=== PATIENT | male | born 1935 ===

== ENCOUNTER 2017-12-08 11:31 | Observation (INO) ==
[2017-12-08] MEDS ORDERED: Lidocaine 1% 10 MG/ML - 20 ML VIAL SUBCUT ONE (11:49)
[2017-12-08 12:19] LABS: BASOPHILS # (AUTO) 0.03 10*3/UL; BASOPHILS % (AUTO) 0.4 % (0-1); EOSINOPHILS # (AUTO) 0.23 10*3/UL; EOSINOPHILS % (AUTO) 3.1 % (0-8); Hematocrit [HCT] 41.7 % (42.0-52.0); Hemoglobin [HGB] 13.9 g/dL (14.0-18.0); LYMPHOCYTES # (AUTO) 1.72 10*3/uL; MEAN CORPUSCULAR HEMOGLOBIN 30.8 PG (27-31); MEAN CORPUSCULAR HGB CONC 33.3 g/dL (33-37); MEAN CORPUSCULAR VOLUME 92.5 FL (80-90); MEAN PLATELET VOLUME 10.2 FL (7.4-12.2); MONOCYTES # (AUTO) 0.59 10*3/UL (0.3-0.8); NEUTROPHILS # (AUTO) 4.78 10*3/UL; NEUTROPHILS % (AUTO) 64.9 % (50-80); RED BLOOD COUNT 4.51 10^6/uL (4.70-6.10)
[2017-12-08 12:25] LABS: PLATELET MORPHOLOGY COMMENT NORMAL MORPHOLOGY (NORM); RBC MORPHOLOGY COMMENT NORMAL MORPHOLOGY (NORM); WBC MORPHOLOGY COMMENT NORMAL MORPHOLOGY (NORM)
[2017-12-08 12:29] LABS: BLOOD UREA NITROGEN 17 mg/dL (7-22); BUN/CREATININE RATIO 24.28 (6-20); SERUM ALBUMIN 3.7 g/dL (3.5-4.8)
[2017-12-08 14:15] LABS: SALICYLATE < 1.0 mg/dl (0-20)
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
[2017-12-08] MEDS ORDERED: DOCUSATE 100 MG CAPSULE PO PRN (19:51)
[2017-12-08] MEDS ORDERED: LIDOCAINE W/ SODIUM BICARB 0.5 ML SYR SUBD PRN (19:51)
[2017-12-08] MEDS ORDERED: CALCIUM CARBONATE 500 MG (TUMS) CHEWABLE TABLET PO PRN (19:51)
[2017-12-08] MEDS ORDERED: ONDANSETRON 4 MG/2 ML VIAL IVP PRN (19:51)
[2017-12-08] MEDS ORDERED: HALOPERIDOL LACTATE 5 MG/1 ML AMPULE IM PRN (19:53)
[2017-12-08] MEDS ORDERED: LIDOCAINE HCL 5 ML JEL TOPICAL PRN (21:59)
[2017-12-08] MEDS ORDERED: NICOTINE 21 MG /DAY PATCH TRANSDERM ONE (22:07)
[2017-12-08] MEDS ORDERED: RIVASTIGMINE 4.6 MG/24 HR PATCH TRANSDERM ONE (22:07)
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
[2017-12-09] MEDS: ACETAMINOPHEN 325 MG TABLET PO PRN (00:59)
[2017-12-09] MEDS: RIVASTIGMINE 4.6 MG/24 HR PATCH TRANSDERM SCH (08:06)
[2017-12-09] MEDS: NICOTINE 21 MG /DAY PATCH TRANSDERM SCH (08:06)
[2017-12-09] MEDS: Patch Removal PATCH TRANSDERM SCH ×2 (08:12)
--- NOTE | 2017-12-09 17:08 | PDOC(PROG) ---
Date of Service: 12/09/17 Time of Service: 17:04 Interval History: Left toe still hurts. He is confused and altered in terms of knowing where he is at, but he is responsive to his name. He has shown no evidence of combative or aggressive behavior here. Objective : Data - Labs CBC and BMP: 12/08/17 12:16 12/08/17 12:16 Objective : Exam - General General Appearance: No Acute Distress, Cooperative Additional General Exam Details: Vital Signs - Last Taken Temperature 98.4 F 12/09/17 15:57 Pulse Rate 60 12/09/17 15:57 Respiratory Rate 17 12/09/17 15:57 Blood Pressure 109/52 12/09/17 15:57 Pulse Ox 97 12/09/17 15:57 - Eye Eye Exam: No Scleral Icterus - ENT ENT Exam: Mucous Membranes Moist - Respiratory Respiratory Exam: Clear to Auscultation - Bilaterally, Breathing Non Labored - Cardiovascular Cardiovascular Exam: RRR, No Murmur, No Clicks, No Gallops, No Rubs, No JVD - GI/Abdominal GI/Abdominal Exam: Normal Bowel Sounds, Non Tender, Non Distended, Soft - Extremities Extremities Exam: No Edema Present, No Cyanosis Present, Clubbing Present - Neurological Neurological Exam: Alert, No Facial Droop, Speech Intact / Clear, Moves All Extremities Equally, Altered Additional Neurological Exam Details: Oriented to person only. - Psychiatric Psychiatric Exam: Normal Affect, Normal Mood Assessment and Plan - Patient Problems (1) Psychosis Current Visit: Yes Status: Resolved Code(s): F29 - Unspecified psychosis not due to a substance or known physiological condition Qualifiers: Psychosis type: brief psychotic disorder Qualified Code(s): F23 - Brief psychotic disorder (2) Dementia Current Visit: Yes Status: Chronic Code(s): F03.90 - Unspecified dementia without behavioral disturbance Qualifiers: Dementia type: unspecified type Dementia behavioral disturbance: with behavioral disturbance Qualified Code(s): F03.91 - Unspecified dementia with behavioral disturbance (3) Tobacco abuse Current Visit: Yes Status: Acute Code(s): Z72.0 - Tobacco use (4) Status post surgical removal of nail matrix of toe of left foot Current Visit: Yes Status: Acute Code(s): Z98.890 - Other specified postprocedural states (5) Hypertension Current Visit: Yes Status: Chronic Code(s): I10 - Essential (primary) hypertension Qualifiers: Hypertension type: essential hypertension Qualified Code(s): I10 - Essential (primary) hypertension (6) COPD (chronic obstructive pulmonary disease) Current Visit: Yes Status: Chronic Code(s): J44.9 - Chronic obstructive pulmonary disease, unspecified Qualifiers: COPD type: unspecified COPD Qualified Code(s): J44.9 - Chronic obstructive pulmonary disease, unspecified - Assessment / Plan Additional Assessment/Plan Details: Overall, I think discontinuing meds and place the patient on Exelon and nicotine patches seems to be working best far in terms of behavioral disturbances in the setting of dementia. Continue dressings for left toe daily until healed up. There is no sign of infection on my examination today in the nail bed looks clean and it is otherwise without any signs of bleeding. I tried to call the patient's stepson discuss further, Judd Delgado, [phone]. I was able to read through the [facility] as well, and the patient is on a 381 hold for harm to self and harm to others. We are waiting for a bed at [facility], but one is not available just yet. The patient will remain here as there is absolutely no safe disposition and he will not be readmitted at [facility] due to his behaviors there, but I really do think that if we can keep him off of several medications and place him in a place where he could continue to smoke, that may be the best accommodations in the future. It may be as per psychiatry at [facility], but he is medically cleared from my standpoint to go with continued dressing changes over the next week or so, for the left toe.
[2017-12-10] MEDS: RIVASTIGMINE 4.6 MG/24 HR PATCH TRANSDERM SCH (09:00)
[2017-12-10] MEDS: NICOTINE 21 MG /DAY PATCH TRANSDERM SCH (10:12)
[2017-12-10] MEDS: Patch Removal PATCH TRANSDERM SCH ×2 (10:16)
--- NOTE | 2017-12-10 12:22 | PDOC(PROG) ---
Date of Service: 12/10/17 Time of Service: 12:19 Interval History: No chest pain, shortness breath, and no change in orientation. He has not had any symptoms of behavioral disturbances here. No aggressive behaviors. He states that his left toe still hurts. Objective : Data - Labs CBC and BMP: 12/08/17 12:16 12/08/17 12:16 Objective : Exam - General General Appearance: No Acute Distress, Cooperative Additional General Exam Details: Vital Signs - Last Taken Temperature 97.5 F 12/10/17 08:10 Pulse Rate 75 12/10/17 08:10 Respiratory Rate 16 12/10/17 08:10 Blood Pressure 138/76 12/10/17 08:10 Pulse Ox 96 12/10/17 08:10 - Eye Eye Exam: No Scleral Icterus - ENT ENT Exam: Mucous Membranes Moist - Respiratory Respiratory Exam: Clear to Auscultation - Bilaterally, Breathing Non Labored - Cardiovascular Cardiovascular Exam: RRR, No Murmur, No Clicks, No Gallops, No Rubs, No JVD - GI/Abdominal GI/Abdominal Exam: Normal Bowel Sounds, Non Tender, Non Distended, Soft - Extremities Extremities Exam: No Edema Present, No Cyanosis Present, Clubbing Present - Neurological Neurological Exam: Alert, No Facial Droop, Speech Intact / Clear, Moves All Extremities Equally Additional Neurological Exam Details: Oriented to person, not to place, time, or situation. Assessment and Plan - Patient Problems (1) Dementia Current Visit: Yes Status: Chronic Code(s): F03.90 - Unspecified dementia without behavioral disturbance Qualifiers: Dementia type: unspecified type Dementia behavioral disturbance: without behavioral disturbance Qualified Code(s): F03.90 - Unspecified dementia without behavioral disturbance (2) Tobacco abuse Current Visit: Yes Status: Acute Code(s): Z72.0 - Tobacco use (3) Status post surgical removal of nail matrix of toe of left foot Current Visit: Yes Status: Acute Code(s): Z98.890 - Other specified postprocedural states (4) Hypertension Current Visit: Yes Status: Chronic Code(s): I10 - Essential (primary) hypertension Qualifiers: Hypertension type: essential hypertension Qualified Code(s): I10 - Essential (primary) hypertension (5) COPD (chronic obstructive pulmonary disease) Current Visit: Yes Status: Chronic Code(s): J44.9 - Chronic obstructive pulmonary disease, unspecified Qualifiers: COPD type: unspecified COPD Qualified Code(s): J44.9 - Chronic obstructive pulmonary disease, unspecified (6) Psychosis Current Visit: Yes Status: Resolved Code(s): F29 - Unspecified psychosis not due to a substance or known physiological condition Qualifiers: Psychosis type: brief psychotic disorder Qualified Code(s): F23 - Brief psychotic disorder - Assessment / Plan Additional Assessment/Plan Details: Continue Exelon patch and nicotine patch. Local wound care for toenail removal. There is no evidence of infection on my view of the toe today. Some yellowish discharge which is normal. No blood. Thus far, the patient has been easily redirectable and has not exhibited any behavioral disturbances here. He is on a hold, but we do not have a bed yet at one may be able to institute. We will have to see what happens as the hold could disappear if he does not have a hearing within 72 hours.
[2017-12-11] MEDS: ACETAMINOPHEN 325 MG TABLET PO PRN (01:54)
[2017-12-11] MEDS: RIVASTIGMINE 4.6 MG/24 HR PATCH TRANSDERM SCH (12:28)
[2017-12-11] MEDS: NICOTINE 21 MG /DAY PATCH TRANSDERM SCH (12:28)
[2017-12-11] MEDS: Patch Removal PATCH TRANSDERM SCH ×2 (12:30)
--- NOTE | 2017-12-11 15:11 | PDOC(PROG) ---
Date of Service: 12/11/17 Time of Service: 15:07 Interval History: Patient seen and evaluated earlier today. No complaints. At least no complaints of chest pain, shortness breath, nausea or vomiting. States left toe still throbs. Objective : Data - Labs CBC and BMP: 12/08/17 12:16 12/08/17 12:16 Objective : Exam - General General Appearance: No Acute Distress, Cooperative Additional General Exam Details: Vital Signs - Last Taken Temperature 97.9 F 12/11/17 13:00 Pulse Rate 79 12/11/17 13:00 Respiratory Rate 18 12/11/17 13:00 Blood Pressure 109/59 12/11/17 13:00 Pulse Ox 94 12/11/17 13:00 - Eye Eye Exam: No Scleral Icterus - ENT ENT Exam: Mucous Membranes Moist - Respiratory Respiratory Exam: Clear to Auscultation - Bilaterally, Breathing Non Labored - Cardiovascular Cardiovascular Exam: RRR, No Murmur, No Clicks, No Gallops, No Rubs, No JVD - Extremities Extremities Exam: No Clubbing Present, No Edema Present, No Cyanosis Present - Neurological Neurological Exam: Alert, Normal Gait, No Facial Droop, Speech Intact / Clear, Moves All Extremities Equally Additional Neurological Exam Details: Oriented to person only Assessment and Plan - Patient Problems (1) Dementia Current Visit: Yes Status: Chronic Code(s): F03.90 - Unspecified dementia without behavioral disturbance Qualifiers: Dementia type: unspecified type Dementia behavioral disturbance: without behavioral disturbance Qualified Code(s): F03.90 - Unspecified dementia without behavioral disturbance (2) Tobacco abuse Current Visit: Yes Status: Acute Code(s): Z72.0 - Tobacco use (3) Status post surgical removal of nail matrix of toe of left foot Current Visit: Yes Status: Acute Code(s): Z98.890 - Other specified postprocedural states (4) Hypertension Current Visit: Yes Status: Chronic Code(s): I10 - Essential (primary) hypertension Qualifiers: Hypertension type: essential hypertension Qualified Code(s): I10 - Essential (primary) hypertension (5) COPD (chronic obstructive pulmonary disease) Current Visit: Yes Status: Chronic Code(s): J44.9 - Chronic obstructive pulmonary disease, unspecified Qualifiers: COPD type: unspecified COPD Qualified Code(s): J44.9 - Chronic obstructive pulmonary disease, unspecified (6) Psychosis Current Visit: Yes Status: Resolved Code(s): F29 - Unspecified psychosis not due to a substance or known physiological condition Qualifiers: Psychosis type: brief psychotic disorder Qualified Code(s): F23 - Brief psychotic disorder - Assessment / Plan Additional Assessment/Plan Details: Continue Exelon patch and nicotine patch. Thus far, no behavioral issues and no aggressive behaviors toward staff or others. Continue local wound care for toenail removal. Placement for this patient may be an issue. However he is still on a 381 hold. It is set to Wednesday. I don't know what will happen in terms of any hearing or not. Ultimately, the patient needs long-term placement in the setting that has some sort of specialization or ability to care for dementia patients. Case management is following and assisting as possible. I tried to call the step son and there was never any answer.
[2017-12-12] MEDS: NICOTINE 21 MG /DAY PATCH TRANSDERM SCH ×2 (09:11→09:15)
[2017-12-12] MEDS: Patch Removal PATCH TRANSDERM SCH ×3 (09:11→09:15)
[2017-12-12] MEDS: RIVASTIGMINE 4.6 MG/24 HR PATCH TRANSDERM SCH (09:11)
--- NOTE | 2017-12-12 12:38 | PDOC(PROG) ---
Date of Service: 12/12/17 Time of Service: 12:34 Interval History: No chest pain and no shortness of breath. States his toe is feeling better. Has no idea where he is at, but he is alert to person. No reports of any behavioral issues or aggressive behavior. Objective : Data - Labs CBC and BMP: 12/08/17 12:16 12/08/17 12:16 Objective : Exam - General General Appearance: No Acute Distress, Cooperative Additional General Exam Details: Vital Signs - Last Taken Temperature 97.8 F 12/12/17 11:08 Pulse Rate 67 12/12/17 11:08 Respiratory Rate 17 12/12/17 11:08 Blood Pressure 134/70 12/12/17 11:08 Pulse Ox 95 12/12/17 11:08 - Eye Eye Exam: No Scleral Icterus - ENT ENT Exam: Mucous Membranes Moist - Respiratory Respiratory Exam: Clear to Auscultation - Bilaterally, Breathing Non Labored - Cardiovascular Cardiovascular Exam: RRR, No Murmur, No Clicks, No Gallops, No Rubs, No JVD - GI/Abdominal GI/Abdominal Exam: Normal Bowel Sounds, Non Tender, Non Distended, Soft - Extremities Extremities Exam: No Edema Present, No Cyanosis Present, Clubbing Present Additional Extremities Exam Details: Left great toe, the bed where the nail was dry, no evidence of any pus drainage , no bleeding. I think we can leave the bandage off now. - Neurological Neurological Exam: Alert, Oriented x 3, No Facial Droop, Speech Intact / Clear, Moves All Extremities Equally Assessment and Plan - Patient Problems (1) Dementia Current Visit: Yes Status: Chronic Code(s): F03.90 - Unspecified dementia without behavioral disturbance Qualifiers: Dementia type: unspecified type Dementia behavioral disturbance: without behavioral disturbance Qualified Code(s): F03.90 - Unspecified dementia without behavioral disturbance (2) Tobacco abuse Current Visit: Yes Status: Acute Code(s): Z72.0 - Tobacco use (3) Status post surgical removal of nail matrix of toe of left foot Current Visit: Yes Status: Acute Code(s): Z98.890 - Other specified postprocedural states (4) Hypertension Current Visit: Yes Status: Chronic Code(s): I10 - Essential (primary) hypertension Qualifiers: Hypertension type: essential hypertension Qualified Code(s): I10 - Essential (primary) hypertension (5) COPD (chronic obstructive pulmonary disease) Current Visit: Yes Status: Chronic Code(s): J44.9 - Chronic obstructive pulmonary disease, unspecified Qualifiers: COPD type: unspecified COPD Qualified Code(s): J44.9 - Chronic obstructive pulmonary disease, unspecified (6) Psychosis Current Visit: Yes Status: Resolved Code(s): F29 - Unspecified psychosis not due to a substance or known physiological condition Qualifiers: Psychosis type: brief psychotic disorder Qualified Code(s): F23 - Brief psychotic disorder - Assessment / Plan Additional Assessment/Plan Details: No real change to plan. Continue Exelon and nicotine patches. Behaviorally, the patient is been fine here. He's not had any aggressive behaviors. He has not had any threatening behaviors. I really do think he just had too many centrally acting medications and had paradoxical agitation, well known in this age range on benzodiazepines, antipsychotics, on 2 antidepressants. Still on hold, and we'll see how that plays out tomorrow. Ultimately, I think the patient's eventual disposition probably needs to be correction facility but the question will be how we are able to do that. If they extend the hold, then [facility] would be his disposition. In terms of the toe, I think he can be open to air as this looks fairly well healed up now.
[2017-12-13] MEDS: ACETAMINOPHEN 325 MG TABLET PO PRN (01:54)
[2017-12-13] MEDS: RIVASTIGMINE 4.6 MG/24 HR PATCH TRANSDERM SCH (08:11)
[2017-12-13] MEDS: NICOTINE 21 MG /DAY PATCH TRANSDERM SCH (08:12)
[2017-12-13] MEDS: Patch Removal PATCH TRANSDERM SCH ×2 (09:25→09:26)
--- NOTE | 2017-12-13 14:35 | PDOC(PROG) ---
Interval History: Patient has no complaints denies chest pain nausea vomiting he states he is depressed Objective : Data - Labs CBC and BMP: 12/08/17 12:16 12/08/17 12:16 Assessment and Plan - Patient Problems (1) COPD (chronic obstructive pulmonary disease) Current Visit: Yes Status: Chronic Code(s): J44.9 - Chronic obstructive pulmonary disease, unspecified Qualifiers: COPD type: unspecified COPD Qualified Code(s): J44.9 - Chronic obstructive pulmonary disease, unspecified (2) Hypertension Current Visit: Yes Status: Chronic Code(s): I10 - Essential (primary) hypertension Qualifiers: Hypertension type: essential hypertension Qualified Code(s): I10 - Essential (primary) hypertension (3) Dementia Current Visit: Yes Status: Chronic Code(s): F03.90 - Unspecified dementia without behavioral disturbance Qualifiers: Dementia type: unspecified type Dementia behavioral disturbance: without behavioral disturbance Qualified Code(s): F03.90 - Unspecified dementia without behavioral disturbance (4) Psychosis Current Visit: Yes Status: Resolved Code(s): F29 - Unspecified psychosis not due to a substance or known physiological condition Qualifiers: Psychosis type: brief psychotic disorder Qualified Code(s): F23 - Brief psychotic disorder (5) Tobacco abuse Current Visit: Yes Status: Acute Code(s): Z72.0 - Tobacco use (6) Status post surgical removal of nail matrix of toe of left foot Current Visit: Yes Status: Acute Code(s): Z98.890 - Other specified postprocedural states - Assessment / Plan Additional Assessment/Plan Details: No change clinically continue Exelon and nicotine patches patient behaviorally is not aggressive he states that he is very depressed. He did talk to [facility] evaluation nurse he stated that he has thoughts of suicide and nothing to live for at this point [facility] will not take the patient in the intermediate and we will are still waiting for a bed at [facility] I also spoke to [facility] and they have a hearing this afternoon to see if they need to prolong the hold or not I told the pending the psych social worker to let the [facility] no of the decision of [facility]. Most likely patient was on too many central acting medications as my colleague stated see previous notes
[2017-12-13 17:51] LABS: Hematocrit [HCT] 41.2 % (42.0-52.0); Hemoglobin [HGB] 14.2 g/dL (14.0-18.0); MEAN CORPUSCULAR HEMOGLOBIN 31.3 PG (27-31); MEAN CORPUSCULAR HGB CONC 34.5 g/dL (33-37); MEAN CORPUSCULAR VOLUME 90.9 FL (80-90); MEAN PLATELET VOLUME 10.5 FL (7.4-12.2); RED BLOOD COUNT 4.53 10^6/uL (4.70-6.10)
[2017-12-13 18:39] LABS: BLOOD UREA NITROGEN 25 mg/dL (7-22); BUN/CREATININE RATIO 41.66 (6-20); SERUM ALBUMIN 3.3 g/dL (3.5-4.8)
[2017-12-14 06:29] VITALS: BP 140/57; RESP 18; TEMP 98; O2SAT 92
[2017-12-14] MEDS: RIVASTIGMINE 4.6 MG/24 HR PATCH TRANSDERM SCH (09:04)
[2017-12-14] MEDS: Patch Removal PATCH TRANSDERM SCH ×2 (09:04)
[2017-12-14] MEDS: NICOTINE 21 MG /DAY PATCH TRANSDERM SCH (09:04)
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
== END 2017-12-14 13:56 ==
LOC: MED/SURG 11:31 → ER 11:31 → UNDODISOB 12-14 13:56
PROVIDERS: ADMIT Family Medicine; ATTEND Family Medicine